=== PATIENT | female | born 1960 | race Caucasian/White ===

== ENCOUNTER 2022-01-16 12:18 | Emergency (ER) | payer MEDICAID, SELFPAY ==
[2022-01-16 12:19] VITALS: BP 174/88; PULSE 72; RESP 16; TEMP 37.4; O2SAT 99; BMI 39.0
--- NOTE | 2022-01-16 12:48 | EX.ED.DYSGE1 ---
HPI History of Present Illness Chief Complaint: Allergic Reaction Informant: patient Narrative Narrative: Patient states she has been having ear pain on the left for a week or 2, she started noticing a rash in this area 5 or 6 days ago, she went to urgent care twice, they gave her 1 antibiotic and when it did not help, they switched it for another, cefdinir and then clindamycin. They are not helping. Prior to all of this she was having a sore throat and some dental pain, the left mandibular dental pain has persisted. Not necessarily sore to eat. No fevers or chills. No drainage. She states the rash is no better. This is her third visit for this. She states she did have chickenpox when she was a child, she has never had shingles before. PFSH PFSH Medical History no medical history no medical history Allergy/AdvReac Type Severity Reaction Status Date / Time Penicillins Allergy Hives Verified 01/16/22 12:22 nitrofurantoin AdvReac Upset Verified 01/16/22 12:22 [From Macrodantin] Stomach Sulfa (Sulfonamide AdvReac Upset Verified 01/16/22 12:22 Antibiotics) Stomach Social History Smoking Status: Unknown if ever smoked ROS ROS ED Constitutional Constitutional ED: Denies chills or fever(s) Eyes Eyes: Denies change in vision or diplopia ENT ENT ED: Reports as per HPI, dental pain, ear pain left and other Details: Decreased hearing left ear ; Denies rhinorrhea or sore throat Cardiovascular Cardiovascular: Denies chest pain or palpitations Respiratory/Chest Respiratory/Chest: Denies cough or dyspnea Gastrointestinal Gastrointestinal: Denies abdominal pain, diarrhea, nausea or vomiting Genitourinary Genitourinary ED: Denies dysuria or hematuria Musculoskeletal Musculoskeletal: Denies back pain or neck pain Integumentary Reports rash; Denies abscess Neurologic Neurologic: Denies headache(s), paresthesias or weakness Psychiatric Psychiatric: Denies anxiety or suicidal thoughts EXAM Physical Exam Const Vital Signs: 01/16/22 12:19 Temperature 99.4 F H Temperature Source Temporal Pulse Rate 72 Respiratory Rate 16 Blood Pressure 174/88 H Blood Pressure Mean 116 Pulse Ox 99 Oxygen Delivery Method Room Air Positive well nourished and well developed General Appearance ED: well developed and NAD HEENT Reports moist mucous membranes HEENT Narrative: Patchy vesicular and erythematous mildly tender rash that involves the mandibular branch of the trigeminal nerve distribution only on the left, cutting off of the midline, there is nothing on the right, the left periauricular area and external auditory canal are mildly involved. TM is normal-appearing bilaterally. No significant edema of the EAC on the left, in which I see 1 or 2 vesicles that are mildly tender normocephalic and atraumatic Eyes PERRL and EOMs intact bilaterally Neck full ROM and supple Resp normal respiratory effort Extremity normal to inspection General Extremety ED: Negative for edema, pulses abnormal or tenderness General Extremity: Negative for edema or pulses abnormal Neuro oriented x3, CN's II-XII intact bilaterally and no sensory deficits noted Sensorium / Orientation: awake and alert Motor Exam: strength 5/5 throughout Skin no rashes or lesions noted and no wounds MDM MDM MDM Narrative Medical decision making narrative: I think this is clearly shingles, 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 Her TM looks normal but she is having decreased hearing, so I would follow-up with otolaryngology, but I am not prescribing her steroids and antivirals since she has had the symptoms for so long they are very unlikely to offer her any benefit. She wants to know that she is not having Redman-Arvind's syndrome. I reassured her she is not, this is a very limited distribution, she has no mucosal lesions in her mouth, her dentition is poor with relatively stable appearing fillings, but there is no obvious evidence of a dental infection and definitely not an abscess. Her gingiva are normal. I think this is all related to the shingles. Supportive care advised, I would follow-up with ENT because of the hearing. Discharge Plan Triage Chief Complaint: Allergic Reaction ED Provider: Bernard Wynn Dx/Rx/DC Orders Clinical Impression: Eliza Villarreal auricular syndrome Instructions: ED Shingles (Herpes Zoster) Primary Care Provider: NOT,DEFINED Referrals: Baljinder Metzger MD [STAFF PHYSICIAN] - 3-5 Days if not improving (With regards to your hearing) Mukul Peters MD [STAFF PHYSICIAN] - (Ophthalmology, only if you start developing left eye vision symptoms and/or pain) NOT,DEFINED [Primary Care Provider] - Activity Restrictions/Additional Instructions: May try capsaicin-containing gels or creams on the affected area to help with pain Disposition Disposition: Home, Self Care
== END 2022-01-16 13:28 | disposition home or self-care (01) ==
LOC: ED 13:07
PROVIDERS: Emergency Provider Emergency Medicine; Visit Provider Emergency Medicine
DX: B02.21 Postherpetic geniculate ganglionitis (principal)
CPT/HCPCS: 99282